=== PATIENT | male | born 1970 ===

== ENCOUNTER 2018-11-05 07:49 | Emergency (ER) | payer OTHER ==
[~2018-11-05] VITALS: Ht 188 cm; Wt 108.9 kg
[2018-11-05] MEDS ORDERED: COZAAR50 MG (08:02)
[2018-11-05] MEDS ORDERED: ULTRACET PO (08:35)
== END 2018-11-05 08:58 | disposition home or self-care (01) ==
LOC: ER 07:49
DX: L02.416 Cutaneous abscess of left lower limb (principal)